=== PATIENT | female | born 1970 | race Caucasian/White ===

== ENCOUNTER 2017-02-25 09:30 | Inpatient (IN) | payer OTHER ==
[2017-02-25 10:50] VITALS: BMI 29.2
[2017-02-25] MEDS ORDERED: GENTAMICIN SO4 80 MG/2 ML VIAL ONE (12:26)
[2017-02-25] MEDS ORDERED: ceFAZolin SODIUM 1 GM VIAL ONE (12:26)
[2017-02-25] MEDS ORDERED: oxyCODONE HCL 5 MG TABLET PO PRN ×3 (15:02→15:07)
[2017-02-25] MEDS ORDERED: ONDANSETRON 4 MG/2 ML VIAL IVPB PRN (15:07)
[2017-02-25] MEDS ORDERED: LACTATED RINGERS SOLUTION 1,000 ML IV SCH ×2 (15:15)
--- NOTE | 2017-02-25 15:17 | OP ---
Operative Note - Note: Operative Date: 02/25/17 Pre-Operative Diagnosis: right breast cancer with asymmetry of reconstructed breast Operation: right partial mastectomy reconstruction with local flaps, bilateral capsulectomy with implant removal on both sides, right immediate breast reconstruction with breast implant and left implant exchange for smaller size Implants: allergan [id number] x 2 Post-Operative Diagnosis: Same as Pre-op Surgeon: Federico Petersen Anesthesia: General Specimens Removed: capsule bilateral Estimated Blood Loss (mls): 50
[2017-02-25] MEDS: ONDANSETRON 4 MG/2 ML VIAL IVPUSH PRN ×2 (16:00→17:31)
[2017-02-25] MEDS ORDERED: ONDANSETRON 4 MG/2 ML VIAL ONE (16:05)
--- NOTE | 2017-02-25 18:44 | OP ---
DATE OF OPERATION: 02/25/2017 TITLE OF PROCEDURE: 1. Right sided reconstruction of partial mastectomy defect with local rearrangement of tissues. 2. Right sided total capsulectomy of existing breast prosthetic capsule. 3. Right sided reconstruction of partial mastectomy with immediate insertion of breast implant transitioned from a prepectoral to a subpectoral plane. 4. Right sided complex 4-cm closure of axillary wound defect. 5. Left sided complete capsulectomy with removal of intact breast prosthesis. 6. Replacement with silicone gel breast prosthesis in submuscular plane on left breast. ATTENDING SURGEON: Federico Mckeon M.D. The procedures performed in combination with a right-sided sentinel lymph node biopsy as well as a partial mastectomy performed by Dr. Opal Lazcano; that portion of the procedure will be dictated by Dr. Lazcano. DESCRIPTION OF PROCEDURE: Patient is marked in the holding area. She is awake and aware of incisions, resulting scars. The patient has requested for smaller implants on bilateral breasts. Patient is aware of the radial lateral incision to be made by Dr. Lazcano for her partial mastectomy. The patient is aware of necessary asymmetries as well as the recommendation for transitioning the implants to a subpectoral plane in anticipation of right-sided breast radiation. Understands all risks, benefits, and alternatives to the procedure, agrees to proceed. She is brought to the operating room, sequential compression stocking and DARLIN hose were applied. Two grams of Ancef are given preoperatively. She is positioned by surgical and anesthesia teams. Carefully prepped and draped in standard surgical fashion. All position points are padded. Timeout is called. Patient procedure side and sites are verified. The procedure is as follows. I assisted with Dr. Lazcano with the right sided sentinel lymph node biopsy as well as the right partial mastectomy. It should be noted that in the right partial mastectomy there was an excision of skin, breast gland, anterior and posterior capsule. After she had completed her procedure, the case was turned over to me, where through her lateral radial incision, hemostasis is achieved. The existing breast implant is removed and noted to be 375 mL silicone gel textured implant. A complete capsulectomy is then performed removing both the anterior and posterior elements of the capsule and sending these to pathology as specimen each independently. At this point, the lateral border of the pectoralis major muscle is identified, and the subpectoral plane is developed. The inferomedial fibers of the pectoralis major muscle are divided to allow appropriate positioning of the implant. The pectoralis major muscle is then pexied to the anterior parenchymal flap in order to preserve a submuscular position for the implant. This is done with a series of interrupted 2-0 Vicryl suture. Attention is then directed toward the contralateral side where gloves are changed and new instruments are used. Patient has an existing infraareolar incision which is remade and dissection is carried down to the level of the periprosthetic capsule. A capsulotomy is performed, and the implant is removed; again, this is a 375-mL textured round silicone gel implant. Through this exposure, a total capsulectomy is performed, and at this point the lateral border of the pectoralis major muscle is identified and a subpectoral plane is developed. The inferomedial fibers are divided in order to allow for proper placement of the new breast prosthesis, and the free edge of the pectoralis major muscle is pexied to the anterior glandular flap with a series of interrupted 2-0 Vicryl suture. At this point gloves are changed. The breast implants are brought onto the field. These are Allergan smooth round silicone gel SRF-365 mL implants. They are soaked in a triple antibiotic solution. Triple antibiotics for this case is a liter of normal saline, gram of Ancef, 80 mg gentamicin in 1000 units of bacitracin. Using a Sandoval funnel, the implants are placed and oriented properly in a submuscular position which is assured. Skin is tailor tacked. The patient brought to a seated, upright position where the implant position is able to be checked for symmetry. Symmetry is excellent. The implant placement is performed bilaterally in a mirror image fashion. Attention is first directed toward the left side where closure of the deep glandular tissue is performed with a series of interrupted 3-0 Monocryl suture, deep dermis is closed with a series of interrupted buried deep dermal 3-0 Monocryl suture, followed by running subcuticular 3-0 Monocryl suture. Attention is then redirected towards the right side where the local tissue flaps are then created with skin undermining an advancement of parenchyma both superiorly and inferiorly. The parenchymal gland is repaired to itself with a running 2-0 PDS suture leaving donor sites open internally. The skin is then closed with a series of interrupted buried deep dermal 3-0 Monocryl suture followed by a running subcuticular 3-0 Monocryl suture. Attention is then directed towards the right axilla where the superficial axillary fascia is closed with a series of interrupted 3-0 Monocryl suture. Hemostasis is assured, and the skin is closed with a series of interrupted buried 3-0 Monocryl suture followed by running subcuticular 3-0 Monocryl suture. Dressings were applied with Steri-Strips, 4x4 gauze, ABD gauze, and a surgical bra. All tissues appear viable. Patient is woken from anesthesia having tolerated procedure well. FEDERICO MCKEON M.D. 1 [id number]
[2017-02-25] MEDS ORDERED: PROMETHAZINE HCL 25 MG/1 ML VIAL ONE (19:05)
[2017-02-25] MEDS ORDERED: DEXAMETHASONE SOD PHOSPHATE 4 MG/1 ML VIAL ONE (19:36)
[2017-02-25 20:53] VITALS: BP 144/83; PULSE 88; TEMP 98
--- NOTE | 2017-03-03 10:43 | PATH ---
Surgical Pathology Report Patient Name: KANDIS NIETO Med. Rec. #: [id number] /Age/Gender: 1970 (Age: 46) / F Account: [id number] Location: [facility] Taken: 02/25/2017 Received: 02/25/2017 Reported: 03/03/2017 Physicians: Opal Lazcano M.D. Specimen(s) Received A: RIGHT AXILLARY SENTINEL LYMPH NODE #1 B: RIGHT AXILLARY NON-SENTINAL LYMPH NODE C: RIGHT BREAST LUMPECTOMY D: RIGHT BREAST IMPLANT E: RIGHT BREAST NEW POSTERIOR MARGIN F: RIGHT BREAST NEW INFERIOR MARGIN G: RIGHT ANTERIOR CAPSULE H: RIGHT POSTERIOR CAPSULE I: LEFT BREAST IMPLANT J: LEFT BREAST CAPSULE Clinical History Invasive Ca Patient has history of pre-pectoral implants Final Diagnosis A. LYMPH NODE, RIGHT AXILLARY SENTINEL #1, EXCISION: ONE LYMPH NODE, NEGATIVE FOR METASTATIC CARCINOMA (0/1). B. LYMPH NODE, RIGHT AXILLARY NON-SENTINEL, EXCISION: THREE LYMPH NODES, NEGATIVE FOR METASTATIC CARCINOMA (0/3). C. BREAST, RIGHT, LUMPECTOMY: INVASIVE DUCTAL CARCINOMA, POORLY DIFFERENTIATED (TUBULE SCORE: 3/3, NUCLEAR GRADE: 3/3, MITOTIC SCORE 2/3; TOTAL TIFF SCORE: 8/9). INVASIVE CARCINOMA MEASURES 3.7 CM IN GREATEST DIMENSION (GROSS MEASUREMENT). DUCTAL CARCINOMA IN SITU (DCIS), SOLID TYPE, HIGH NUCLEAR GRADE WITH MODERATE NECROSIS IS PRESENT ADMIXED WITH INVASIVE CARCINOMA AND AWAY FROM IT. INVASIVE CARCINOMA AND DCIS ARE CLOSE TO (< 1 MM) THE POSTERIOR MARGIN WHICH SHOWS FIBROUS CAPSULE. DCIS IS CLOSE TO (< 1 MM) THE MEDIAL MARGIN AND AT 1 MM FROM THE INFERIOR MARGIN. INVASIVE CARCINOMA IS AT 2 MM FROM THE INFERIOR MARGIN AND 5 MM FROM THE SUPERIOR MARGIN. THE LATERAL MARGIN IS WIDELY CLEAR OF INVASIVE CARCINOMA AND DCIS. SEE SPECIMENS E&F FOR FINAL POSTERIOR AND INFERIOR MARGINS. SKIN IS PRESENT AND IS UNINVOLVED BY CARCINOMA. NO LYMPHOVASCULAR INVASION IS IDENTIFIED. REMAINING BREAST TISSUE SHOWS PROLIFERATIVE FIBROCYSTIC CHANGES. PATHOLOGIC STAGE (pTNM): pT2 pN0. SEE ALSO INVASIVE CARCINOMA CASE SUMMARY BELOW. D. IMPLANT, RIGHT BREAST, REMOVAL: IMPLANT, DESCRIBED (GROSS EXAMINATION ONLY). E. BREAST, RIGHT, NEW POSTERIOR MARGIN, EXCISION: FIBROADIPOSE TISSUE WITH FIBROUS CAPSULE. NEGATIVE FOR CARCINOMA. F. BREAST, RIGHT, NEW INFERIOR MARGIN, EXCISION: FIBROADIPOSE TISSUE AND FIBROUS CAPSULE. NEGATIVE FOR CARCINOMA. G. RIGHT ANTERIOR CAPSULE, CAPSULECTOMY: FIBROUS CAPSULE. H. RIGHT POSTERIOR CAPSULE, CAPSULECTOMY: FIBROUS CAPSULE. I. IMPLANT, LEFT BREAST, REMOVAL: IMPLANT, DESCRIBED (GROSS EXAMINATION ONLY). J. LEFT BREAST CAPSULE, CAPSULECTOMY: FIBROUS CAPSULE. Comments Breast Invasive Carcinoma: Surgical Pathology Cancer Case Summary Based on AJCC/UICC TNM, 7th edition Procedure _X_ Excision without image-guided localization Lymph Node Sampling _X_ [place] lymph node(s) _X_ Other lymph nodes (non-sentinel) Specimen Laterality _X_ Right Tumor Size: Size of Largest Invasive Carcinoma: 3.7 cm Tumor Focality _X_ Single focus of invasive carcinoma Macroscopic and Microscopic Extent of Tumor Skin _X_ Invasive carcinoma does not invade into the dermis or epidermis Nipple _X_ Not applicable (excisions less than total mastectomy) Ductal Carcinoma In Situ (DCIS) _X_ DCIS is present _X_ as a minor component (< 25% of tumor) Histologic Type of Invasive Carcinoma : _X_ Invasive carcinoma of no special type (ductal, not otherwise specified) Histologic Grade: (Tiff Histologic Score) Tubular Differentiation _X_ Score 3 Nuclear Pleomorphism _X_ Score 3 Mitotic Rate _X_ Score 2 Overall Grade _X_ Grade 3: scores of 8 or 9 (poorly differentiated) Margins _X_ Margins uninvolved by invasive carcinoma Distance from closest margin: Invasive carcinoma is < 1mm from the posterior margin in lumpectomy specimen C. Final posterior margin E is negative for carcinoma. _X_ Margin(s) close to (< 1 mm) DCIS: medial (DCIS is < 1 mm from posterior and medial margins and at 1 mm from inferior margin in lumpectomy specimen C. Final posterior (E) and inferior (F) margins are negative for DCIS. Lymph-Vascular Invasion _X_ Not identified Lymph Nodes Total number of lymph nodes examined (sentinel and nonsentinel): 4 Number of sentinel lymph nodes examined: 1 Number of lymph nodes with macrometastases ( > 2 mm): 0 Number of lymph nodes with micrometastases (>0.2 mm to 2 mm and/or >200cells):0 Number of lymph nodes with isolated tumor cells (=0.2 mm and =200 cells): 0 Extranodal Extension _X_ Not applicable Pathologic Staging (pTNM) Primary Tumor (Invasive Carcinoma): pT2 Regional Lymph Nodes (pN): pN0 (sn) Biomarker Studies Results of ER and UT studies performed on or prior biopsy ([id number]) at [facility] are as follows: ER (clone [id number] mouse monoclonal antibody by [employer]) : >95 % nuclear staining with strong intensity (Positive). UT (clone16 mouse monoclonal antibody by [employer]): ~3-5 % nuclear staining with moderate intensity (Positive). Results of Her2 (IHC) & Ki-67 studies performed on prior biopsy ([id number]) at [place], [place] ( [id number]) are as follows: Her2 IHC (EP3 from [employer], formerly known as [id number], using Scales Polymer Refine detection kit): 1+ (Negative). Ki67: 30-35% (High proliferative index). Electronically Signed Meche Esparza M.D. Gross Description A. Received in formalin labeled "right axillary sentinel lymph node #1," is a 1.6 x 0.9 x 0.8 cm armstrong, irregular lymph node with attached fat. The specimen is trisected and entirely submitted in 2 cassettes. B. Received in formalin labeled "right axillary non-sentinel lymph node," are 3 armstrong, irregular lymph nodes ranging from 0.5 - 0.6 cm in greatest dimension. The lymph nodes are bisected and entirely submitted in 3 cassettes as follows: 1-3-one whole bisected lymph node each. C. Received in formalin, labeled "right breast lumpectomy," is a 6.5 x 5.1 x 3.7 cm. armstrong-yellow, irregular, portion of fibroadipose tissue. There is no needle localization wire present. There is a short suture marking the superior aspect and a long suture marking the lateral aspect, per the surgeon. The anterior surface displays a 4.5 x 1.5 cm armstrong, elliptical, unremarkable portion of skin. The entire posterior margin displays a fibrous capsule. The specimen is inked as follows: superior blue; inferior green; lateral red; medial yellow; posterior black. The specimen is serially sectioned from lateral to medial. Sectioning reveals a 3.7 x 3.4 x 1.7 cm armstrong, firm mass abutting the fibrous capsule (posterior margin). The mass is focally 0.2 cm from the inferior margin and 0.5 cm from the superior margin. [employer] sections are submitted in ten cassettes as follows: 1-2-one bisected section of mass (1-superior and posterior margins; 2-inferior and posterior margins); 3-4- mass with posterior margin (fibrous capsule); 5- mass with inferior margin; 6-7- mass with superior margin; 8-skin; 9-medial margin; 10-lateral margin. Time to formalin fixation: 41 minutes Total formalin fixation time: Approximately 29 hours. D. Received fresh labeled "right breast implant," is an 11.5 cm in diameter x 4 cm in depth rubbery, intact breast implant. No soft tissue is present. No sections are submitted, gross only. E. Received in formalin labeled "right breast new posterior margin," is a 3.8 x 2.6 x 1.0 cm irregular portion of fibroadipose tissue the suture marking the old margin, per the surgeon. The old margin it surfaced by a fibrous capsule. The new margin is inked blue and the specimen is serially sectioned. The specimen is entirely and sequentially submitted in 6 cassettes. F. Received in formalin labeled "right breast new inferior margin," is a 4.0 x 3.2 x 1.3 cm irregular portion of fibroadipose tissue with a suture marking the old margin, per the surgeon. The new margin is inked blue and the specimen is serially sectioned. The specimen is entirely and sequentially submitted in 9 cassettes. G. Received in formalin labeled "right anterior capsule," is a 6.5 x 4.5 x 0.3 cm aggregate of multiple armstrong, irregular portions of fibrous capsule. [employer] sections are submitted in one cassette. H. Received in formalin labeled "right posterior capsule," is a 3.5 x 3.0 x 0.4 cm aggregate of multiple armstrong, irregular portions of fibrous capsule. [employer] sections are submitted in one cassette. I. Received fresh labeled "left breast implant," is an 11.5 cm in diameter x 4 cm in depth rubbery, intact breast implant. No soft tissue is present. No sections are submitted, gross only. J. Received in formalin labeled "left breast capsule," is a 5.5 x 4.0 x 0.4 cm aggregate of multiple armstrong, irregular portions of fibrous capsule. [employer] sections are submitted in one cassette. DL/02/26/2017 saudi/02/26/2017
== END 2017-02-25 20:30 | disposition home or self-care (01) | DRG 362 ==
LOC: EDSTATUS 09:30 → FM/S 10:13 → UNDOADMIN 10:13 → FM/S 10:28
PROVIDERS: ADMIT Surgery; ATTEND Surgery
PROC: 0HUT0JZ Supplement Right Breast with Synthetic Substitute, Open Approach (ICD-10-PCS; 2017-02-25)
PROC: 0HWU0JZ Revision of Synthetic Substitute in Left Breast, Open Approach (ICD-10-PCS; 2017-02-25)
PROC: 0HTT0ZZ Resection of Right Breast, Open Approach (ICD-10-PCS; principal; 2017-02-25 11:44)
PROC: 07B50ZX Excision of Right Axillary Lymphatic, Open Approach, Diagnostic (ICD-10-PCS; 2017-02-25 11:44)
PROC: 0HRT0JZ Replacement of Right Breast with Synthetic Substitute, Open Approach (ICD-10-PCS; 2017-02-25 11:44)
DX: C50.911 Malignant neoplasm of unspecified site of right female breast (principal)
CPT/HCPCS: 78195-TC; 84703; 88300-TC; 88304-TC; 88307-TC; 94760; A9541

== ENCOUNTER 2017-03-18 10:02 | Day surgery (SDC) | payer OTHER ==
[2017-03-16 12:58] VITALS: BMI 29.9
[~2017-03-18 10:02] MED LIST: LIDOCAINE HCL 1%, 10 MG/ML (20ML VIAL) NR ONE; ceFAZolin SODIUM 1 GM VIAL IVPB ONE
[2017-03-18 10:19] VITALS: TEMP 97.6
[2017-03-18] MEDS ORDERED: LIDOCAINE HCL 1%, 10 MG/ML (20ML VIAL) ONE (11:04)
[2017-03-18] MEDS ORDERED: MIDAZOLAM HCL 2 MG/2 ML SINGLE DOSE VIAL ONE ×2 (11:17→12:03)
[2017-03-18] MEDS ORDERED: PROPOFOL 20 ML ONE (12:03)
[2017-03-18] MEDS ORDERED: ceFAZolin SODIUM 1 GM VIAL IVPB ONE (12:04)
[2017-03-18] MEDS ORDERED: LIDOCAINE HCL 1%, 10 MG/ML (20ML VIAL) NR ONE ×2 (12:11)
[2017-03-18] MEDS ORDERED: oxyCODONE HCL 5 MG TABLET PO PRN (12:46)
[2017-03-18] MEDS ORDERED: ONDANSETRON 4 MG/2 ML VIAL IVPUSH PRN (12:46)
[2017-03-18] MEDS ORDERED: PROMETHAZINE HCL 25 MG/1 ML VIAL IVPUSH PRN (12:46)
[2017-03-18] MEDS ORDERED: LACTATED RINGERS SOLUTION 1,000 ML IV SCH (13:00)
[2017-03-18 14:59] VITALS: BP 137/94; PULSE 76
--- NOTE | 2017-03-18 19:07 | OP ---
DATE OF OPERATION: 03/18/2017 PREOPERATIVE DIAGNOSIS: Right breast cancer. POSTOPERATIVE DIAGNOSIS: Right breast cancer. PROCEDURE: Right breast re-excision lumpectomy. SURGEON: Opal Zuluaga M.D. ANESTHESIA: Local IV sedation. ESTIMATED BLOOD LOSS: Minimal. COMPLICATIONS: None. This is a sterile procedure. INDICATION FOR PROCEDURE: Patient presented, had a right lumpectomy and sentinel node biopsy that noted a close medial margin and my recommendation is a re- excision lumpectomy. the procedure was discussed with all the questions answered. PROCEDURE IN DETAIL: The patient was brought to [facility], taken into the operating room, where after IV sedation and, IV antibiotics, the right breast was prepped and draped in the usual sterile fashion. The area of the outer right breast was anesthetized with 1% lidocaine without epinephrine. The prior incision was sharply reopened and there was not much tissue within the lumpectomy cavity that had essentially collapsed. I took a new medial margin of this lumpectomy cavity with a stitch at the old margin. I then took an additional medial margin, that is the new medial margin, with a stitch at the old margin. These were all sent to pathology for permanent section. After this was completed, there seemed to be a slight opening where the implant was visible, as there was no muscle coverage, so I covered the tissue over the implant using a 3-0 Vicryl interrupted suture. The skin then approximated with interrupted 3-0 Vicryl, running 4-0 Monocryl. A sterile dressing with Tegaderm was applied. She tolerated procedure well, was taken to recovery in good condition. OPAL ZULUAGA M.D. [id number] MTDD
--- NOTE | 2017-03-24 17:34 | PATH ---
Surgical Pathology Report Patient Name: KANDIS NIETO [facility]. Rec. #: [id number] /Age/Gender: 1970 (Age: 46) / F Account: [id number] Location: [facility] SUR[facility] Taken: 03/18/2017 Received: 03/18/2017 Reported: 03/24/2017 Physicians: Opal Lazcano M.D. Specimen(s) Received A: RIGHT BREAST NEW MEDIAL MARGIN B: RIGHT BREAST NEW NEW MEDIAL MARGIN Clinical History Invasive Ca Final Diagnosis A. BREAST, RIGHT, NEW MEDIAL MARGIN, EXCISION: FOCAL ATYPICAL DUCTAL HYPERPLASIA (ADH) IN A BACKGROUND OF PROLIFERATIVE FIBROCYSTIC CHANGES INCLUDING CYSTIC APOCRINE METAPLASIA, USUAL DUCTAL HYPERPLASIA (UDH) AND COLUMNAR CELL CHANGES. NO RESIDUAL INVASIVE OR IN SITU CARCINOMA IS IDENTIFIED. PRIOR BIOPSY SITE CHANGES ARE PRESENT. B. BREAST, RIGHT, NEW MEDIAL MARGIN, EXCISION: BENIGN BREAST TISSUE SHOWING SMALL INTRADUCTAL PAPILLOMA, FOCAL USUAL DUCTAL HYPERPLASIA (UDH AND STROMAL FIBROSIS. NO RESIDUAL INVASIVE OR IN SITU CARCINOMA IS IDENTIFIED. Electronically Signed Meche Esparza M.D. Gross Description A. Received in formalin labeled "right breast new medial margin," is a 2.7 x 2.0 x 1.0 cm irregular portion of fibroadipose tissue with a suture marking the old margin, per the surgeon. The new margin is inked green and the specimen is serially sectioned. The specimen is entirely and sequentially submitted in 4 cassettes. B. Received in formalin labeled "right breast new new medial margin," is a 1.7 x 1.4 x 0.5 cm irregular portion of fibroadipose tissue with a suture marking the old margin, per the surgeon. The new margin is inked green and the specimen is serially sectioned. The specimen is entirely submitted in 2 cassettes. DL/03/18/2017 saudi03/18/2017
== END 2017-03-18 15:41 | disposition home or self-care (01) ==
LOC: JASU-SURG 10:02
PROVIDERS: ATTEND Surgery
PROC: 0HBT0ZZ Excision of Right Breast, Open Approach (ICD-10-PCS; principal; 2017-03-18 11:30)
DX: C50.911 Malignant neoplasm of unspecified site of right female breast (principal)
CPT/HCPCS: 88307-TC; 94760

== ENCOUNTER 2017-04-15 10:41 | Day surgery (SDC) | payer OTHER ==
[2017-04-14 08:51] VITALS: BMI 31.6
[2017-04-15] MEDS ORDERED: ONDANSETRON 4 MG/2 ML VIAL IVPUSH PRN (11:58)
[2017-04-15] MEDS ORDERED: LACTATED RINGERS SOLUTION 1,000 ML IV SCH (12:00)
[2017-04-15] MEDS ORDERED: LIDOCAINE HCL 1%, 10 MG/ML (20ML VIAL) ONE (12:37)
[2017-04-15] MEDS ORDERED: MIDAZOLAM HCL 2 MG/2 ML SINGLE DOSE VIAL ONE (13:55)
[2017-04-15] MEDS ORDERED: PROPOFOL 20 ML ONE ×2 (13:58)
[2017-04-15] MEDS ORDERED: LIDOCAINE HCL/PF 2% SDV 5ML VIAL ONE (13:58)
[2017-04-15] MEDS ORDERED: ceFAZolin SODIUM 1 GM VIAL ONE (14:00)
--- NOTE | 2017-04-15 15:01 | HP ---
History & Physical Update - History History: No Change - Physical Physical: No Change - Assessment Assessment: No Change - Plan Plan: No Change
[2017-04-15 16:00] VITALS: TEMP 97.5
[2017-04-15 17:21] VITALS: BP 148/90; PULSE 78
== END 2017-04-15 17:15 | disposition home or self-care (01) ==
LOC: JASU-SURG 10:41
PROVIDERS: ATTEND Surgery
PROC: B517ZZA Fluoroscopy of Left Subclavian Vein, Guidance (ICD-10-PCS; 2017-04-15)
PROC: 05H633Z Insertion of Infusion Device into Left Subclavian Vein, Percutaneous Approach (ICD-10-PCS; principal; 2017-04-15 13:00)
DX: C50.911 Malignant neoplasm of unspecified site of right female breast (principal)
CPT/HCPCS: 71010-TC; 76000-TC; 94760; J1644

== ENCOUNTER 2018-03-22 15:10 | Emergency (ER) | payer OTHER ==
--- NOTE | 2018-03-22 15:17 | PDOC ---
Rapid Medical Evaluation Chief Complaint: Lightheaded Time Seen by Provider: 03/22/18 15:12 Medical Evaluation: Allergies Allergy/AdvReac Type Severity Reaction Status Date / Time No Known Allergies Allergy Verified 04/14/17 09:07 03/22/18 15:12 47 year old female with c/o headache dizziness since 12 pm. b/p high at home.denies back pain PE: patient alert ox3 A: dizziness P: EKG patient to the ER for further management of care. Discharge Disposition - Diagnosis Headache Qualifiers: Headache type: unspecified Headache chronicity pattern: unspecified pattern Intractability: not intractable Qualified Code(s): R51 - Headache Hypertension Qualifiers: Hypertension type: essential hypertension Qualified Code(s): I10 - Essential ( primary) hypertension - Referrals - Patient Instructions - Post Discharge Activity
[2018-03-22 15:20] VITALS: BP 153/109; PULSE 110; TEMP 98.4; BMI 29.0
--- NOTE | 2018-03-22 16:14 | PDOC ---
History of Present Illness <Carmenza Pickett Moira - Last Filed: 03/22/18 18:47> - History of Present Illness Initial Comments: 47 year old female with PMH of HTN presenting with headache, lightheadedness, and elevated blood pressure for the past few hours. States that she felt slightly lightheaded and had a headache around noon so she checked her blood pressure which was elevated above 180. She denies any room spinning sensation, pre-syncopal sensation, chest pain, back pain, or other symptoms. Her PCP is Jeana and she saw him a few months prior without any change in medications. She has been on the same BP med for the past few years. 03/22/18 18:03 <Jamie Wolf - Last Filed: 03/22/18 19:28> - General Chief Complaint: Lightheaded Stated Complaint: DIZZY Time Seen by Provider: 03/22/18 15:12 Past History <Carmenza Pickett - Last Filed: 03/22/18 18:47> - Past Medical History Anemia: No Asthma: No Cancer: Yes (RT BREAST) Cardiac Disorders: No CVA: No COPD: No CHF: No Dementia: No Diabetes: No GI Disorders: No Disorders: No HTN: Yes Hypercholesterolemia: No Liver Disease: No Seizures: No Thyroid Disease: No Other medical history: had 15 rounds of chemotherapy over 30 days - Surgical History Abdominal Surgery: Yes (ABDOMINOPLASTY) Appendectomy: No Cardiac Surgery: No Cholecystectomy: Yes Lung Surgery: No Neurologic Surgery: No Orthopedic Surgery: No - Suicide/Smoking/Psychosocial Hx Smoking History: Never smoked Have you smoked in the past 12 months: No Hx Alcohol Use: No Drug/Substance Use Hx: No Substance Use Type: None Hx Substance Use Treatment: No <Jamie Wolf - Last Filed: 03/22/18 19:28> - Past Medical History Allergies/Adverse Reactions: Allergies Allergy/AdvReac Type Severity Reaction Status Date / Time No Known Allergies Allergy Verified 03/22/18 15:16 Home Medications: Ambulatory Orders Losartan Potassium 50 mg PO DAILY 03/16/17 Review of Systems - Review of Systems Constitutional: No: Chills, Diaphoresis, Fever HEENTM: No: Eye Pain, Blurred Vision, Tearing Respiratory: No: Cough, Shortness of Breath, Stridor, Wheezing Cardiac (ROS): No: Edema, Irregular Heart Rate ABD/GI: No: Abdominal Distended, Diarrhea, Nausea, Vomiting : No: Burning, Dysuria, Discharge, Frequency Musculoskeletal: No: Back Pain, Joint Pain Integumentary: No: Flushing, Lesions, Lumps Neurological: Yes: Headache, Weakness, Dizziness. No: Numbness, Paresthesia, Tingling, Tremors, Ataxia Psychiatric: No: Anxiety, Depression, Frequent Crying Hematologic/Lymphatic: No: Anemia, Blood Clots, Easy Bleeding <Jamie Wolf - Last Filed: 03/22/18 19:28> *Physical Exam - Vital Signs Last Vital Signs Temp Pulse Resp BP Pulse Ox 98.4 F 110 H 18 153/109 H 97 03/22/18 15:16 03/22/18 15:16 03/22/18 15:16 03/22/18 15:16 03/22/18 15:16 <Carmenza Pickett - Last Filed: 03/22/18 18:47> - Vital Signs Last Vital Signs Temp Pulse Resp BP Pulse Ox 98.4 F 110 H 18 153/109 H 97 03/22/18 15:16 03/22/18 15:16 03/22/18 15:16 03/22/18 15:16 03/22/18 15:16 - Physical Exam General Appearance: Yes: Nourished, Appropriately Dressed. No: Apparent Distress HEENT: positive: EOMI, KAROLYN, Normal ENT Inspection, Normal Voice, Other (20/40 vision bilaterally) Neck: positive: Trachea midline, Normal Thyroid, Supple. negative: Tender, Rigid Respiratory/Chest: positive: Lungs Clear, Normal Breath Sounds. negative: Chest Tender, Respiratory Distress, Accessory Muscle Use Cardiovascular: positive: Regular Rhythm, Regular Rate Gastrointestinal/Abdominal: positive: Normal Bowel Sounds, Flat, Soft. negative : Tender Musculoskeletal: positive: Normal Inspection. negative: CVA Tenderness Extremity: positive: Normal Capillary Refill, Normal Inspection, Normal Range of Motion. negative: Tender Integumentary: positive: Normal Color, Dry, Warm Neurologic: positive: agricultural engineer II-XII NML intact, Fully Oriented, Alert, Normal Mood/ Affect, Normal Response, Motor Strength 5/5 <Jamie Wolf - Last Filed: 03/22/18 19:28> ED Treatment Course - LABORATORY CBC & Chemistry Diagram: 03/22/18 17:35 03/22/18 17:35 - ADDITIONAL ORDERS Additional order review: Laboratory Results 03/22/18 17:35 Sodium 139 Potassium 4.3 Chloride 103 Carbon Dioxide 28 Anion Gap 8 BUN 18 Creatinine 0.8 Creat Clearance w eGFR > 60 Random Glucose 111 H Calcium 9.0 Total Bilirubin 0.2 AST 23 ALT 18 Alkaline Phosphatase 103 Total Protein 7.9 Albumin 3.8 03/22/18 17:35 RBC 4.49 MCV 83.0 MCHC 35.1 RDW 14.5 MPV 7.8 Neutrophils % 54.7 Lymphocytes % 35.4 Monocytes % 6.7 Eosinophils % 2.2 Basophils % 1.0 <Carmenza Pickett - Last Filed: 03/22/18 18:47> - LABORATORY CBC & Chemistry Diagram: 03/22/18 17:35 03/22/18 17:35 <Jamie Wolf - Last Filed: 03/22/18 19:28> Medical Decision Making - Medical Decision Making 03/22/18 18:47 47-year-old female had complained of headache. This started today and her blood pressure was elevated at 180. She also felt lightheaded. Denies vertigo, chest pain, shortness of breath, back pain <Carmenza Pickett - Last Filed: 03/22/18 18:47> - Medical Decision Making 47 year old with previous history of breast cancer presenting with headache, hypertension, and lightheadedness since 12 PM. Patient's headache resolved with Motrin and pressures improved, Labs WNL, Neuro exam completely intact and visual acuity WNL. Rpeat BP 133/101. Will DC with follow up with PCP and Tylenol / Motrin use instructions. 03/22/18 19:13 <Jamie Wolf - Last Filed: 03/22/18 19:28> *DC/Admit/Observation/Transfer <Carmenza Pickett - Last Filed: 03/22/18 18:47> - Discharge Dispostion Decision to Admit order: No <Jamie Wolf - Last Filed: 03/22/18 19:28> Diagnosis at time of Disposition: Headache Qualifiers: Headache type: unspecified Headache chronicity pattern: unspecified pattern Intractability: not intractable Qualified Code(s): R51 - Headache Hypertension Qualifiers: Hypertension type: essential hypertension Qualified Code(s): I10 - Essential ( primary) hypertension - Discharge Dispostion Disposition: HOME Condition at time of disposition: Improved - Referrals Referrals: Tej Kumar [Primary Care Provider] - - Patient Instructions Printed Discharge Instructions: Essential Hypertension Additional Instructions: Please take your blood pressure medication as indicated. Please stop eating salty foods and stick to a more vegetable based diet. Please follow up with your primary care doctor tomorrow. You can use Tylenol and Motrin for your headaches. Please return to the ED if you have new or worsening symptoms. Print Language: CROATIAN - Post Discharge Activity
[2018-03-22 17:55] LABS: EOS % 2.2 % (0-4.5); HEMATOCRIT 37.3 % (32.4-45.2); HEMOGLOBIN 13.1 GM/dL (10.7-15.3); LYMPH % 35.4 % (8-40); MCH 29.2 pg (25.7-33.7); MCHC 35.1 g/dl (32.0-36.0); MEAN PLT VOLUME 7.8 fl (7.5-11.1); MONO % 6.7 % (3.8-10.2); NEUT % 54.7 % (42.8-82.8); PLATELET COUNT 253 K/MM3 (134-434); RBC 4.49 M/mm3 (3.60-5.2); RDW 14.5 % (11.6-15.6); WHITE BLOOD COUNT 4.3 K/mm3 (4.0-10.0)
[2018-03-22 18:13] LABS: ALBUMIN 3.8 g/dl (3.4-5.0); ALK PHOS 103 U/L (45-117); ANION GAP 8 MMOL/L (8-16); BILIRUBIN,TOTAL 0.2 mg/dL (0.2-1); BLOOD UREA NITROGEN 18 mg/dL (7-18); CHLORIDE 103 mmol/L (98-107); CO2 28 mmol/L (21-32); CREATININE 0.8 mg/dL (0.55-1.3); GLUCOSE,RANDOM 111 mg/dL (74-106); POTASSIUM 4.3 mmol/L (3.5-5.1); SGOT/AST 23 U/L (15-37); SGPT/ALT 18 U/L (13-61); SODIUM 139 mmol/L (136-145); TOT PROT 7.9 g/dl (6.4-8.2)
[2018-03-22] MEDS ORDERED: IBUPROFEN 600 MG TABLET (FP) PO ONE ×2 (18:44→18:49)
--- NOTE | 2018-03-22 19:16 | PDOC ---
Attending Attestation - HPI HPI: This patient is a 47 year old female with PMHx of HTN, right sided breast CA s/ p resection, who presents with headache, lightheadedness, and elevated blood pressure today. She had a headache and felt lightheaded since noontime. She checked her blood pressure which was elevated above 180. PCP: Dr. Hills <Kylah Griffith - Last Filed: 03/22/18 19:16> - Resident Resident Name: Jamie Wolf - ED Attending Attestation I have performed the following: I have examined & evaluated the patient, The case was reviewed & discussed with the resident, I agree w/resident's findings & plan, Exceptions are as noted - HPI HPI: 03/22/18 19:15 47-year-old female presents with lightheadedness and headache that started today. Past medical history is significant for hypertension, right breast cancer. Patient denies vertigo, chest pain, shortness of breath, syncopal episode, back pain - Physicial Exam PE: 03/22/18 19:22 heavy set 47 yo female had c.o lightheadedness today and mild headache that resolved head ncat eyes gurdeep eomi neck supple lungs cta b/l cvs [id number] abd protuberant ext no edema neuro axox3 skin warm and dry - Medical Decision Making 03/22/18 19:25 blood pressure improved 03/22/18 20:36 no focal neuro deficits,no visual changes ,symptoms improved <Carmenza Pickett - Last Filed: 03/22/18 20:36>
--- NOTE | 2018-03-23 11:35 | EKG ---
Test Reason : Blood Pressure : / mmHG Vent. Rate : 099 BPM Atrial Rate : 099 BPM P-R Int : 148 ms QRS Dur : 076 ms QT Int : 376 ms P-R-T Axes : 053 020 017 degrees QTc Int : 482 ms NORMAL SINUS RHYTHM PROLONGED QT ABNORMAL ECG NO PREVIOUS ECGS AVAILABLE Confirmed by Jonatan Lim MD ([id number]) on 03/23/2018 11:35:18 AM Referred By: Confirmed By:Jonatan Lim MD
== END 2018-03-22 20:10 | disposition home or self-care (01) ==
LOC: JER 15:10
DX: I10 Essential (primary) hypertension (principal); Z85.3 Personal history of malignant neoplasm of breast
CPT/HCPCS: 36415; 80053; 85025; 93005; 93010; 99282-25

== ENCOUNTER 2018-04-09 09:03 | Day surgery (SDC) | payer OTHER ==
[2018-04-08 18:29] VITALS: BMI 29.9
[~2018-04-09 09:03] MED LIST changes: +LIDOCAINE HCL 1%, 10 MG/ML (20ML VIAL) INF ONE; -LIDOCAINE HCL 1%, 10 MG/ML (20ML VIAL) NR ONE; -ceFAZolin SODIUM 1 GM VIAL IVPB ONE
[2018-04-09 09:27] VITALS: TEMP 98.3
[2018-04-09] MEDS ORDERED: LIDOCAINE HCL 1%, 10 MG/ML (20ML VIAL) ONE (11:15)
[2018-04-09] MEDS ORDERED: LIDOCAINE HCL 1%, 10 MG/ML (20ML VIAL) INF ONE ×2 (11:26)
[2018-04-09] MEDS ORDERED: ACETAMINOPHEN 500 MG TABLET (FP) PO PRN (12:23)
[2018-04-09] MEDS ORDERED: ACETAMINOPHEN 325 MG TABLET (FP) ONE (12:33)
[2018-04-09] MEDS ORDERED: ACETAMINOPHEN 325 MG TABLET (FP) PO ONE (12:35)
[2018-04-09 14:57] VITALS: BP 125/80; PULSE 98
--- NOTE | 2018-04-10 07:34 | OP ---
DATE OF OPERATION: 04/09/2018 PREOPERATIVE DIAGNOSIS: Breast cancer. POSTOPERATIVE DIAGNOSIS: Breast cancer. PROCEDURE: Removal of left Mediport. SURGEON: Opal Lazcano MD ANESTHESIA: Local. COMPLICATIONS: None. This was a sterile procedure. INDICATIONS: Patient had treatment for her breast cancer, now finished with chemotherapy. Therefore, now ready to take her left Mediport out. The procedure was discussed with her under local anesthesia, and all her questions were answered. PROCEDURE IN DETAIL: Patient was brought to [facility] and taken into the operating room, and after the right upper chest was cleansed and the area anesthetized with 1% lidocaine without epinephrine, the prior incision was sharply reopened, and the catheter was removed without difficulty and intact. This was sent to Pathology. Hemostasis was assured with electrocautery. Pressure was held in this infraclavicular area to stop the bleeding from the vein. Once the hemostasis was assured, the incision was closed in a routine fashion with interrupted 0 Vicryl and running 4-0 Biosyn. A sterile dressing with Tegaderm was applied. She tolerated the procedure well, was taken to recovery in good condition. Deonte [id number]
--- NOTE | 2018-04-12 16:56 | PATH ---
Surgical Pathology Report Patient Name: KANDIS NIETO Med. Rec. #: [id number] /Age/Gender: 1970 (Age: 47) / F Account: [id number] Location: [facility] Taken: 04/09/2018 Received: 04/09/2018 Reported: 04/12/2018 Physicians: Opal Lazcano M.D. Specimen(s) Received REMOVED PERMA CATHETER Clinical History Right breast cancer Final Diagnosis PORT-A-CATH, REMOVAL: CONSISTENT WITH PORT-A-CATH. MACROSCOPIC DIAGNOSIS. Electronically Signed Natasha Scherer M.D. Gross Description Received fresh labeled "removed Port-A-Cath," is a 2.5 x 2.5 x 1.3 cm salcedo metallic device, consistent with a john cath. The Port-A-Cath displays a 23 cm in length portion of tubing extending from one aspect. No soft tissue is present. No sections are submitted, gross only. 04/09/2018 [place]04/09/2018
== END 2018-04-09 13:40 | disposition home or self-care (01) ==
LOC: JASU-SURG 09:03
PROVIDERS: ATTEND Surgery
PROC: 02PY03Z Removal of Infusion Device from Great Vessel, Open Approach (ICD-10-PCS; 2018-04-09)
PROC: 0JPT0XZ Removal of Tunneled Vascular Access Device from Trunk Subcutaneous Tissue and Fascia, Open Approach (ICD-10-PCS; principal; 2018-04-09 11:00)
DX: Z45.2 Encounter for adjustment and management of vascular access device (principal); C50.911 Malignant neoplasm of unspecified site of right female breast
CPT/HCPCS: 88300-TC

== ENCOUNTER 2018-12-09 11:38 | Emergency (ER) | payer OTHER | END 2018-12-09 18:46 | disposition home or self-care (01) | LOC: JER 11:38 ==

== ENCOUNTER 2021-06-23 12:34 | Emergency (ER) | payer OTHER ==
[2021-06-23 12:52] VITALS: BP 104/67; PULSE 82; TEMP 98.8; BMI 26.9
[2021-06-23] MEDS ORDERED: IBUPROFEN 600 MG TABLET (FP) PO ONE ×2 (13:10→13:26)
== END 2021-06-23 13:51 | disposition home or self-care (01) ==
LOC: FER 12:34
DX: M79.674 Pain in right toe(s) (principal); W20.8XXA Other cause of strike by thrown, projected or falling object, initial encounter
CPT/HCPCS: 73660-TC-FY; 99283-25

== ENCOUNTER 2022-09-29 10:42 | Emergency (ER) | payer OTHER ==
[2022-09-29 10:53] VITALS: BP 120/83; PULSE 85; RESP 16; TEMP 98.7; BMI 28.6
[2022-09-29] MEDS ORDERED: DEXAMETHASONE 4 MG TABLET (FP) PO ONE (10:54)
[2022-09-29] MEDS ORDERED: DEXAMETHASONE 4 MG TABLET (FP) ONE (10:57)
== END 2022-09-29 11:11 | disposition home or self-care (01) ==
LOC: FER 10:42
DX: R22.42 Localized swelling, mass and lump, left lower limb (principal); M79.672 Pain in left foot; M76.62 Achilles tendinitis, left leg
CPT/HCPCS: 99283-25

== ENCOUNTER 2022-12-02 10:22 | Emergency (ER) | payer OTHER ==
[2022-12-02] MEDS ORDERED: ACETAMINOPHEN 500 MG TABLET (FP) PO ONE (10:37)
[2022-12-02] MEDS ORDERED: ACETAMINOPHEN 500 MG TABLET (FP) ONE (10:47)
[2022-12-02 11:29] VITALS: BP 134/92; PULSE 95; RESP 18; TEMP 98.8; BMI 29.4
== END 2022-12-02 11:32 | disposition home or self-care (01) ==
LOC: FER 10:22
DX: S60.111A Contusion of right thumb with damage to nail, initial encounter (principal); W23.0XXA Caught, crushed, jammed, or pinched between moving objects, initial encounter
CPT/HCPCS: 73140-TC-RT-FY; 99283-25

== ENCOUNTER 2023-04-09 17:50 | Emergency (ER) | payer OTHER ==
[2023-04-09 18:07] VITALS: BP 134/96; PULSE 100; RESP 16; TEMP 98.4; BMI 29.9
[2023-04-09] MEDS ORDERED: KETOROLAC TROMETHAMINE 30 MG/1 ML VIAL IM ONE (18:23)
[2023-04-09] MEDS ORDERED: KETOROLAC TROMETHAMINE 30 MG/1 ML VIAL ONE (18:24)
== END 2023-04-09 20:11 | disposition home or self-care (01) ==
LOC: FER 17:50
PROC: 3E0233Z Introduction of Anti-inflammatory into Muscle, Percutaneous Approach (ICD-10-PCS; principal; 2023-04-09)
DX: M79.672 Pain in left foot (principal)
CPT/HCPCS: 73610-TC-LT-FY; 73630-TC-LT; 99284-25